=== PATIENT | male | born 1955 | race African-American/Black ===

== ENCOUNTER 2022-03-05 00:27 | Emergency (ER) | payer MEDICARE, OTHER ==
[~2022-03-05] VITALS: Ht 165.1 cm; Wt 66.4 kg
[~2022-03-05 00:27] MED LIST: AMLO10TA80 PO; CLOP75TA15 PO; COR6 PO; FAMO20TA8 PO; FLAS1EAC2 TP; HYDR-4135 PO; ISOS20TA57 MT; LIP40 PO; LISI20TA31 PO; METF-414 MT
[2022-03-05 03:26] LABS: CLARITY URINE CLOUDY (CLEAR); COLOR URINE ORANGE (YELLOW); KETONES URINE NEGATIVE (NEGATIVE); LEUKOCYTE ESTERASE URINE 1+ (NEGATIVE); NITRITE URINE NEGATIVE (NEGATIVE); OCCULT BLOOD URINE 3+ (NEGATIVE); PROTEIN URINE 4+ (NEGATIVE); SPECIFIC GRAVITY URINE 1.019 (1.005-1.030)
[2022-03-05] MEDS ORDERED: CLONIDINE 0.3MG TABLET PO ONE (03:45)
[2022-03-05] MEDS ORDERED: HYDROCODONE/ACETAMINOPHEN 10/325MG TABLET PO ONE (04:15)
[2022-03-05] MEDS ORDERED: CEPHALEXIN 250MG CAPSULE PO ONE (04:15)
[2022-03-05] MEDS ORDERED: CEPH500C2 MT ×2 (04:49→06:38)
[2022-03-05 04:56] VITALS: BP 153/78
== END 2022-03-05 04:59 | disposition home or self-care (01) ==
LOC: ER 00:27
DX: N39.0 Urinary tract infection, site not specified (principal); I10 Essential (primary) hypertension; E11.9 Type 2 diabetes mellitus without complications; Z86.73 Personal history of transient ischemic attack (TIA), and cerebral infarction without residual deficits; Z79.899 Other long term (current) drug therapy
CPT/HCPCS: 81003; 82962; 99284

== ENCOUNTER 2022-05-03 22:20 | Emergency (ER) | payer MEDICARE, OTHER ==
[~2022-05-03] VITALS: Ht 165.1 cm; Wt 63.8 kg
[~2022-05-03 22:20] MED LIST changes: +CEPH500C2 MT
[2022-05-03] MEDS ORDERED: AMLODIPINE 10MG TABLET PO ONE (22:45)
[2022-05-03] MEDS ORDERED: CARVEDILOL 6.25 MG TABLET PO ONE (22:45)
[2022-05-03] MEDS ORDERED: HYDRALAZINE HCL 50MG TABLET PO SCH (22:59)
[2022-05-03] MEDS ORDERED: ISOSORBIDE MONONITRATE 20MG TABLET PO SCH (22:59)
[2022-05-03 23:02] LABS: BASOPHILS % 0.6 % (0.0-2.0); EOSINOPHILS % 0.2 % (0.0-5.0); HEMATOCRIT. 38.3 % (36.0-48.0); HEMOGLOBIN. 12.5 g/dL (12.0-16.0); LYMPHOCYTES % 18.1 % (20.0-50.0); MEAN CORPUSCULAR HEMOGLOBIN 27.7 pg (28.0-32.0); MEAN CORPUSCULAR VOLUME 85.2 fL (81.0-99.0); MEAN PLATELET VOLUME 8.2 fl (7.4-10.4); MONOCYTES % 4.2 % (2.0-8.0); NEUTROPHILS % 76.9 % (40.0-76.0); PLATELET 493 x1000/uL (130-400); RED CELL DISTRIBUTION WIDTH 13.5 % (11.6-14.6)
[2022-05-03 23:09] LABS: CHLORIDE 102 mEq/L (98-107)
[2022-05-04] MEDS ORDERED: AMLO10TA80 MT (00:24)
[2022-05-04] MEDS ORDERED: CARV6.2548 MT (00:24)
[2022-05-04 01:44] VITALS: BP 132/69
[2022-05-04] MEDS ORDERED: HYDRALAZINE HCL 50MG TABLET PO SCH (06:00)
[2022-05-04] MEDS ORDERED: ISOSORBIDE MONONITRATE 20MG TABLET PO SCH (09:00)
== END 2022-05-04 01:46 | disposition home or self-care (01) ==
LOC: EDSEX 22:20 → ER 22:20
DX: I10 Essential (primary) hypertension (principal); Z76.0 Encounter for issue of repeat prescription; R11.10 Vomiting, unspecified; E11.9 Type 2 diabetes mellitus without complications; E78.00 Pure hypercholesterolemia, unspecified; Z86.73 Personal history of transient ischemic attack (TIA), and cerebral infarction without residual deficits
CPT/HCPCS: 36415; 80053; 83880; 85025; 93005; 99285

== ENCOUNTER 2022-06-10 08:59 | Emergency (ER) | payer MEDICARE, OTHER ==
[~2022-06-10] VITALS: Ht 165.1 cm; Wt 63.0 kg
[~2022-06-10 08:59] MED LIST changes: +AMLO10TA80 MT; +CARV6.2548 MT
[2022-06-10] MEDS ORDERED: ACET-3163 MT (09:21)
[2022-06-10] MEDS ORDERED: CHLO473M2 MT (09:21)
[2022-06-10] MEDS ORDERED: AMOX1TAB16 MT (09:21)
[2022-06-10] MEDS ORDERED: ACETAMINOPHEN 325MG TABLET PO ONE (09:30)
[2022-06-10] MEDS ORDERED: AMOXICILLIN/POTASSIUM CLAVULANATE 875/125MG TAB PO ONE (09:30)
[2022-06-10 09:50] VITALS: BP 169/89
== END 2022-06-10 09:51 | disposition home or self-care (01) ==
LOC: ER 09:23
DX: K04.7 Periapical abscess without sinus (principal); I10 Essential (primary) hypertension; K05.30 Chronic periodontitis, unspecified
CPT/HCPCS: 99283

== ENCOUNTER 2022-06-26 09:55 | Emergency (ER) | payer MEDICARE, OTHER ==
[~2022-06-26] VITALS: Ht 165.1 cm; Wt 66.0 kg
[~2022-06-26 09:55] MED LIST changes: +ACET-3163 MT; +AMOX1TAB16 MT; +CHLO473M2 MT
[2022-06-26] MEDS ORDERED: CLONIDINE 0.2MG TABLET PO ONE (10:30)
[2022-06-26] MEDS: CLONIDINE 0.2MG TABLET PO SCH ×2 (11:05→12:10)
[2022-06-26] MEDS ORDERED: CARV6.2548 MT (12:32)
[2022-06-26] MEDS ORDERED: AMLO10TA80 PO (12:32)
[2022-06-26 12:51] VITALS: BP 220/90
== END 2022-06-26 12:55 | disposition home or self-care (01) ==
LOC: ER 09:55
DX: I10 Essential (primary) hypertension (principal); E11.9 Type 2 diabetes mellitus without complications; Z79.899 Other long term (current) drug therapy; Z76.0 Encounter for issue of repeat prescription
CPT/HCPCS: 99283

== ENCOUNTER 2022-08-17 10:57 | Emergency (ER) | payer MEDICARE, OTHER ==
[~2022-08-17] VITALS: Ht 165.1 cm; Wt 75.0 kg
[2022-08-17 11:37] VITALS: BP 231/116
[2022-08-17] MEDS ORDERED: AMLODIPINE 10MG TABLET PO ONE (11:45)
[2022-08-17] MEDS ORDERED: CARVEDILOL 6.25 MG TABLET PO ONE (11:45)
[2022-08-17] MEDS ORDERED: CARV6.2548 MT (11:51)
[2022-08-17] MEDS ORDERED: HYDR-4134 MT (11:51)
[2022-08-17] MEDS ORDERED: METF-414 MT (11:53)
[2022-08-17] MEDS ORDERED: HYDRALAZINE HCL 25MG TABLET PO ONE (12:00)
== END 2022-08-17 12:06 | disposition home or self-care (01) ==
LOC: ER 10:57
DX: I10 Essential (primary) hypertension (principal); E11.9 Type 2 diabetes mellitus without complications; Z86.73 Personal history of transient ischemic attack (TIA), and cerebral infarction without residual deficits; Z76.0 Encounter for issue of repeat prescription
CPT/HCPCS: 99283

== ENCOUNTER 2022-10-25 14:05 | Emergency (ER) | payer MEDICARE, OTHER ==
[~2022-10-25] VITALS: Ht 160 cm; Wt 73.0 kg
[~2022-10-25 14:05] MED LIST changes: -ACET-3163 MT; -AMLO10TA80 MT; -AMLO10TA80 PO; -AMOX1TAB16 MT; -CARV6.2548 MT; -CEPH500C2 MT; -CHLO473M2 MT; -HYDR-4135 PO; +MINO10TA16 PO; +NIFE-32 PO
[2022-10-25 14:23] VITALS: BP 240/116
[2022-10-25] MEDS: CARVEDILOL 6.25 MG TABLET PO ONE (18:36)
[2022-10-25] MEDS: AMLODIPINE 5MG TABLET PO ONE ×2 (18:37→20:30)
[2022-10-25] MEDS: LISINOPRIL 20MG TABLET PO ONE (18:37)
[2022-10-25] MEDS: NIFEDIPINE XL 60MG TAB PO ONE (20:30)
[2022-10-25] MEDS ORDERED: CARV6.2548 MT (22:21)
[2022-10-25] MEDS ORDERED: NIFE-32 MT (22:21)
[2022-10-25] MEDS ORDERED: ISOS20TA57 MT (22:21)
[2022-10-25] MEDS ORDERED: CLOP75TA33 MT (22:21)
[2022-10-25] MEDS ORDERED: LISI20TA31 MT (22:21)
== END 2022-10-25 22:25 | disposition home or self-care (01) ==
LOC: ER 14:05
DX: I16.0 Hypertensive urgency (principal); I10 Essential (primary) hypertension; E11.9 Type 2 diabetes mellitus without complications; Z79.899 Other long term (current) drug therapy
CPT/HCPCS: 93005; 99284

== ENCOUNTER 2025-03-02 13:44 | Inpatient (IN) | payer MEDICARE, OTHER ==
[~2025-03-02] VITALS: Ht 167.6 cm; Wt 115.7 kg
[~2025-03-02 13:44] MED LIST changes: +ASPI-1406 PO; +CLOP-31 PO; -CLOP75TA15 PO; +COR3 PO; -COR6 PO; -ISOS20TA57 MT; -LISI20TA31 PO; -METF-414 MT; -MINO10TA16 PO; -NIFE-32 PO; +SENN-362 PO; +ZINC1CAP2 PO; +[UNRECOGNIZED DRUG - CODE] PO
[2025-03-02] MEDS: LABETALOL 5MG/ML 4ML INJ IV ONE (14:55)
[2025-03-02 15:09] LABS: HEMATOCRIT. 33.7 % (36.0-48.0); MEAN CORPUSCULAR HEMOGLOBIN 27.1 pg (28.0-32.0); MEAN CORPUSCULAR HGB CONC 32.6 g/dL (31.0-37.0); MEAN CORPUSCULAR VOLUME 82.9 fL (81.0-99.0); PLATELET 683 x1000/uL (130-400); RED BLOOD CELL COUNT 4.07 mill/uL (4.2-5.4); RED CELL DISTRIBUTION WIDTH 14.9 % (11.6-14.6); WHITE BLOOD COUNT 9.8 x1000/uL (4.5-11.0)
[2025-03-02 15:10] LABS: BASOPHILS % 0.6 % (0.0-2.0); EOSINOPHILS % 4.5 % (0.0-5.0); LYMPHOCYTES % 28.5 % (20.0-50.0); MEAN PLATELET VOLUME 7.3 fl (7.4-10.4); MONOCYTES % 6.7 % (2.0-8.0); NEUTROPHILS % 59.7 % (40.0-76.0)
[2025-03-02 15:20] LABS: CHLORIDE 101 mEq/L (98-107); POTASSIUM 3.7 mEq/L (3.5-5.1); SODIUM 140 mEq/L (136-145)
[2025-03-02 15:21] LABS: CARBON DIOXIDE 29 mEq/L (21-32); PROTHROMBIN TIME 10.9 sec (9.6-11.0)
[2025-03-02 15:22] LABS: CALCIUM 9.5 mg/dL (8.7-10.4)
[2025-03-02 15:26] LABS: CREATININE 0.8 mg/dL (0.6-1.0); GLUCOSE 185 mg/dL (70-105); TROPONIN I HIGH SENSITIVITY 25 ng/L (3.0-34)
[2025-03-02 15:27] LABS: UREA NITROGEN BLOOD 17 mg/dL (9-23)
[2025-03-02] MEDS: SODIUM CHLORIDE 0.9% (SEPSIS BOLUS) IV ONE (17:19)
[2025-03-02] MEDS: PIPERACILLIN/TAZO 3.375G/50ML 50 ML IV ONE (17:20)
[2025-03-02 18:17] LABS: ALANINE AMINOTRANSFERASE 17 IU/L (10-49); ALBUMIN 3.3 g/dL (3.2-4.8); ASPARTATE AMINOTRANSFERASE 22 IU/L (<34); BILIRUBIN DIRECT < 0.1 mg/dL (<=3.0); BILIRUBIN TOTAL 0.2 mg/dL (0.1-1.0); PROTEIN TOTAL 6.3 g/dL (6.0-8.3)
[2025-03-02] MEDS: VANCOMYCIN 1G PREMIX 200 ML IV ONE (18:53)
[2025-03-02] MEDS: HYDRALAZINE 20MG/ML VIAL IV PRN (19:16)
[2025-03-02] MEDS ORDERED: DEXTROSE 50% WATER 50ML SYRINGE IV PRN (20:45)
[2025-03-02] MEDS ORDERED: ACETAMINOPHEN 325MG TABLET PO PRN ×2 (20:45)
[2025-03-02] MEDS: BLOOD SUGAR DIAGNOSTIC STRIP TEST SCH (21:00)
[2025-03-02] MEDS: INSULIN LISPRO 100 UNITS/ML SUBCUT SCH (21:00)
[2025-03-02] MEDS ORDERED: IPRATROPIUM/ALBUTEROL 0.5-3(2.5)MG/3ML NEB HHN PRN (21:08)
[2025-03-02] MEDS: LABETALOL 5MG/ML 4ML INJ IV NR (21:16)
[2025-03-02 21:21] LABS: CLARITY URINE TURBID (CLEAR); COLOR URINE YELLOW (YELLOW); GLUCOSE URINE NEGATIVE (NEGATIVE); KETONES URINE NEGATIVE (NEGATIVE); LEUKOCYTE ESTERASE URINE 3+ (NEGATIVE); NITRITE URINE NEGATIVE (NEGATIVE); OCCULT BLOOD URINE 2+ (NEGATIVE); PH URINE 8.5 (4.5-8.0); PROTEIN URINE 2+ (NEGATIVE); SPECIFIC GRAVITY URINE 1.014 (1.005-1.030); UROBILINOGEN URINE 0.2 E.U./dL (0.2-1.0)
[2025-03-02 21:29] LABS: WBC URINE 25-50 /hpf (0-2)
[2025-03-02 21:30] LABS: BACTERIA URINE 4+; SQUAMOUS EPITHELIAL CELL URINE FEW /lpf (RARE/1+)
[2025-03-02 21:53] LABS: *AMPHETAMINES SCREEN URINE NEGATIVE (NEGATIVE); *BARBITURATES SCREEN URINE NEGATIVE (NEGATIVE); *BENZODIAZEPINES SCREEN URINE NEGATIVE (NEGATIVE); *COCAINE SCREEN URINE NEGATIVE (NEGATIVE); METHADONE URINE SCREEN NEGATIVE (NEGATIVE)
[2025-03-02 21:54] LABS: CANNABINOID URINE SCREEN NEGATIVE (NEGATIVE); ECSTASY MDMA SCREEN URINE NEGATIVE (NEGATIVE); OPIATES URINE SCREEN NEGATIVE (NEGATIVE); PHENCYCLIDINE URINE SCREEN NEGATIVE (NEGATIVE)
[2025-03-02] MEDS: AZITHROMYCIN 500MG/250ML 250 ML IV SCH (23:39)
[2025-03-02 23:54] LABS: CREATINE KINASE MB FRACTION 2.2 ng/mL (0.5-3.6)
[2025-03-03] VITALS (7 sets, daily range): BP systolic 147–191; BP diastolic 68–88; PULSE 83–97; RESP 17–23; TEMP 36.3–37.2; O2SAT 97–100
[2025-03-03] MEDS: NIFEDIPINE XL 60MG TAB PO NR (00:24)
[2025-03-03] MEDS: FUROSEMIDE 100MG/10ML VIAL IVP NR (00:25)
[2025-03-03] MEDS: VANCOMYCIN 750MG PREMIX 150 ML IV SCH ×2 (05:22→21:51)
[2025-03-03] MEDS: PIPERACILLIN/TAZO 3.375G/50ML 50 ML IV SCH (05:22)
[2025-03-03] MEDS: HYDRALAZINE 20MG/ML VIAL IV PRN (06:13)
[2025-03-03 07:29] LABS: BASOPHILS % 0.6 % (0.0-2.0); EOSINOPHILS % 2.6 % (0.0-5.0); HEMATOCRIT. 32.1 % (36.0-48.0); HEMOGLOBIN. 10.4 g/dL (12.0-16.0); LYMPHOCYTES % 19.2 % (20.0-50.0); MEAN CORPUSCULAR HEMOGLOBIN 26.7 pg (28.0-32.0); MEAN CORPUSCULAR HGB CONC 32.5 g/dL (31.0-37.0); MEAN CORPUSCULAR VOLUME 82.2 fL (81.0-99.0); MEAN PLATELET VOLUME 7.3 fl (7.4-10.4); MONOCYTES % 5.1 % (2.0-8.0); NEUTROPHILS % 72.5 % (40.0-76.0); PLATELET 703 x1000/uL (130-400); RED BLOOD CELL COUNT 3.91 mill/uL (4.2-5.4); RED CELL DISTRIBUTION WIDTH 14.8 % (11.6-14.6); WHITE BLOOD COUNT 9.8 x1000/uL (4.5-11.0)
[2025-03-03 07:36] LABS: CARBON DIOXIDE 26 mEq/L (21-32); CHLORIDE 103 mEq/L (98-107); CREATINE KINASE MB FRACTION 3.3 ng/mL (0.5-3.6); POTASSIUM 3.3 mEq/L (3.5-5.1); SODIUM 142 mEq/L (136-145)
[2025-03-03 07:39] LABS: T4 FREE 1.57 ng/dL (0.89-1.76); THYROID STIMULATING HORMONE 2.34 uIU/mL (0.55-4.78)
[2025-03-03 07:42] LABS: CREATININE 0.6 mg/dL (0.6-1.0); GLUCOSE 206 mg/dL (70-105); IRON 25 ug/dL (50-170); TRIGLYCERIDE 88 mg/dL (0-150)
[2025-03-03 07:43] LABS: LDL CHOLESTEROL 59 mg/dL (5-100); UREA NITROGEN BLOOD 11 mg/dL (9-23)
[2025-03-03 07:44] LABS: CHOLESTEROL 115 mg/dL (<200); FERRITIN 303 ng/mL (10-291); HDL CHOLESTEROL 35 mg/dL (>65); PHOSPHORUS 2.9 mg/dL (2.5-4.9)
[2025-03-03 07:45] LABS: FOLIC ACID (FOLATE) SERUM 14.53 ng/mL (>5.38); TOTAL IRON BINDING CAPACITY 295 ug/dl (250-425); VITAMIN B12 SERUM 1542 pg/mL (211-911)
[2025-03-03] MEDS: ASPIRIN 81MG EC TABLET PO SCH (08:38)
[2025-03-03] MEDS: CARVEDILOL 3.125 MG TABLET PO SCH (08:38)
[2025-03-03] MEDS: LOSARTAN 100 MG TABLET PO SCH (08:39)
[2025-03-03] MEDS: CLOPIDOGREL 75MG TABLET PO SCH (08:39)
[2025-03-03] MEDS: NIFEDIPINE XL 60MG TAB PO SCH (08:39)
[2025-03-03] MEDS: ENOXAPARIN 40MG/0.4ML SYR SUBCUT SCH (08:40)
[2025-03-03] MEDS: POTASSIUM CHLORIDE 20MEQ TABLET SR PO NR (08:40)
[2025-03-03] MEDS: FUROSEMIDE 40MG/4ML VIAL IV SCH (08:40)
[2025-03-03] MEDS: PANTOPRAZOLE SODIUM 40 MG/VIAL IV SCH (08:40)
[2025-03-03] MEDS: LABETALOL 5MG/ML 4ML INJ IV NR (09:30)
[2025-03-03] MEDS: MAGNESIUM 2 G PREMIX 50 ML IV NR (09:30)
[2025-03-03 11:50] LABS: TROPONIN I HIGH SENSITIVITY 191 ng/L (3.0-34)
[2025-03-03] MEDS: FERROUS SULFATE 325MG TABLET PO SCH (13:29)
[2025-03-03] MEDS: AZITHROMYCIN 500MG/250ML 250 ML IV SCH (21:51)
[2025-03-03] MEDS: ATORVASTATIN CALCIUM 40MG TABLET PO SCH (21:52)
[2025-03-03] MEDS: CARVEDILOL 12.5MG TABLET PO SCH (21:53)
[2025-03-04] VITALS: BP 118/88; PULSE 101; RESP 20; TEMP 36.3; O2SAT 98
[2025-03-04 04:00] VITALS: BP 122/64; PULSE 77; RESP 20; TEMP 36.3; O2SAT 98
[2025-03-04 06:39] LABS: BASOPHILS % 0.6 % (0.0-2.0); EOSINOPHILS % 2.7 % (0.0-5.0); HEMATOCRIT. 30.2 % (36.0-48.0); LYMPHOCYTES % 20.7 % (20.0-50.0); MEAN CORPUSCULAR HEMOGLOBIN 27.3 pg (28.0-32.0); MEAN CORPUSCULAR HGB CONC 33.1 g/dL (31.0-37.0); MEAN CORPUSCULAR VOLUME 82.4 fL (81.0-99.0); MEAN PLATELET VOLUME 7.3 fl (7.4-10.4); MONOCYTES % 5.1 % (2.0-8.0); NEUTROPHILS % 70.9 % (40.0-76.0); PLATELET 696 x1000/uL (130-400); RED BLOOD CELL COUNT 3.67 mill/uL (4.2-5.4); WHITE BLOOD COUNT 9.9 x1000/uL (4.5-11.0)
[2025-03-04 06:47] LABS: CHLORIDE 102 mEq/L (98-107); POTASSIUM 3.8 mEq/L (3.5-5.1); SODIUM 141 mEq/L (136-145)
[2025-03-04 06:48] LABS: CALCIUM 9.1 mg/dL (8.7-10.4); CARBON DIOXIDE 29 mEq/L (21-32)
[2025-03-04 06:53] LABS: CREATININE 0.6 mg/dL (0.6-1.0); GLUCOSE 177 mg/dL (70-105); UREA NITROGEN BLOOD 13 mg/dL (9-23)
[2025-03-04 08:00] VITALS: BP 131/92; PULSE 82; RESP 13; TEMP 36.8; O2SAT 99
[2025-03-04 09:03] LABS: TROPONIN I HIGH SENSITIVITY 198 ng/L (3.0-34)
[2025-03-04 12:00] VITALS: BP 161/87; PULSE 78; RESP 16; TEMP 36.4; O2SAT 98
[2025-03-04 16:00] VITALS: BP 139/66; PULSE 77; RESP 23; TEMP 36.6; O2SAT 99
[2025-03-04 20:00] VITALS: BP 162/67; PULSE 90; RESP 25; TEMP 36.9; O2SAT 98
[2025-03-04] MEDS: SULFAMETHOXAZOLE/TRIMETHOPRIM 800/160MG TABLET PO SCH (21:10)
[2025-03-04] MEDS: AZITHROMYCIN 250 MG TABLET PO SCH (21:11)
[2025-03-04] MEDS: AMOXICILLIN/POTASSIUM CLAVULANATE 500/125MG TAB PO SCH (21:18)
[2025-03-05] VITALS: BP 106/55; PULSE 77; RESP 20; TEMP 36.8; O2SAT 99
[2025-03-05 04:00] VITALS: BP 141/74; PULSE 82; RESP 23; TEMP 36.7; O2SAT 98
[2025-03-05 07:16] LABS: CHLORIDE 100 mEq/L (98-107); POTASSIUM 3.7 mEq/L (3.5-5.1); SODIUM 138 mEq/L (136-145)
[2025-03-05 07:17] LABS: BASOPHILS % 0.4 % (0.0-2.0); CALCIUM 9.3 mg/dL (8.7-10.4); CARBON DIOXIDE 30 mEq/L (21-32); EOSINOPHILS % 3.4 % (0.0-5.0); HEMATOCRIT. 31.4 % (36.0-48.0); HEMOGLOBIN. 10.4 g/dL (12.0-16.0); LYMPHOCYTES % 21.5 % (20.0-50.0); MEAN CORPUSCULAR HEMOGLOBIN 27.1 pg (28.0-32.0); MEAN CORPUSCULAR HGB CONC 33.1 g/dL (31.0-37.0); MEAN CORPUSCULAR VOLUME 81.7 fL (81.0-99.0); MEAN PLATELET VOLUME 7.4 fl (7.4-10.4); MONOCYTES % 5.6 % (2.0-8.0); NEUTROPHILS % 69.1 % (40.0-76.0); PLATELET 737 x1000/uL (130-400); RED BLOOD CELL COUNT 3.84 mill/uL (4.2-5.4); WHITE BLOOD COUNT 10.2 x1000/uL (4.5-11.0)
[2025-03-05 07:22] LABS: CREATININE 0.8 mg/dL (0.6-1.0); GLUCOSE 180 mg/dL (70-105); UREA NITROGEN BLOOD 15 mg/dL (9-23)
[2025-03-05 08:00] VITALS: BP 145/67; PULSE 84; RESP 17; TEMP 36.7; O2SAT 99
[2025-03-05 08:02] LABS: TROPONIN I HIGH SENSITIVITY 122 ng/L (3.0-34)
[2025-03-05] MEDS ORDERED: VANCOMYCIN 1G PREMIX 200 ML IV SCH (09:00)
[2025-03-05] MEDS: ZINC SULFATE 220 MG ( 50 ) CAPSULE PO SCH (09:40)
[2025-03-05 12:00] VITALS: BP 153/75; PULSE 80; RESP 20; TEMP 36.6; O2SAT 99
[2025-03-05] MEDS ORDERED: SULF1TAB44 PO (12:25)
[2025-03-05] MEDS ORDERED: AZIT250T12 PO (12:25)
[2025-03-05] MEDS ORDERED: FERR-63 PO (12:25)
[2025-03-05] MEDS ORDERED: LOSA100T33 PO (12:25)
[2025-03-05] MEDS ORDERED: NIFE-32 PO (12:25)
[2025-03-05] MEDS ORDERED: COR12 PO (12:25)
[2025-03-05] MEDS ORDERED: ZINC1CAP2 PO (12:25)
[2025-03-05 16:00] VITALS: BP 136/85; PULSE 78; RESP 14; TEMP 36.7; O2SAT 98
[2025-03-05 17:12] VITALS: BP 134/71; PULSE 78; TEMP 98; O2SAT 98
== END 2025-03-05 18:49 | disposition home or self-care (01) | DRG 871 ==
LOC: ER 13:44 → 3WST 17:54 → EDBEDREQ 17:56 → EDBEDREQTM 17:56
PROVIDERS: ADMIT Hospitalist; ATTEND Hospitalist
DX: A41.59 Other Gram-negative sepsis (principal); I21.A1 Myocardial infarction type 2; L89.153 Pressure ulcer of sacral region, stage 3; I50.33 Acute on chronic diastolic (congestive) heart failure; J18.9 Pneumonia, unspecified organism; J96.01 Acute respiratory failure with hypoxia; J96.02 Acute respiratory failure with hypercapnia; R53.2 Functional quadriplegia; I16.1 Hypertensive emergency; L97.418 Non-pressure chronic ulcer of right heel and midfoot with other specified severity; L97.428 Non-pressure chronic ulcer of left heel and midfoot with other specified severity; L97.318 Non-pressure chronic ulcer of right ankle with other specified severity; Z16.24 Resistance to multiple antibiotics; N39.0 Urinary tract infection, site not specified; I11.0 Hypertensive heart disease with heart failure; D64.9 Anemia, unspecified; I69.398 Other sequelae of cerebral infarction; E11.51 Type 2 diabetes mellitus with diabetic peripheral angiopathy without gangrene; E11.65 Type 2 diabetes mellitus with hyperglycemia; I25.10 Atherosclerotic heart disease of native coronary artery without angina pectoris; K21.9 Gastro-esophageal reflux disease without esophagitis; D75.839 Thrombocytosis, unspecified; L89.159 Pressure ulcer of sacral region, unspecified stage; E78.5 Hyperlipidemia, unspecified; B96.89 Other specified bacterial agents as the cause of diseases classified elsewhere; Z95.1 Presence of aortocoronary bypass graft; Z79.02 Long term (current) use of antithrombotics/antiplatelets; Z74.01 Bed confinement status; Z79.82 Long term (current) use of aspirin
CPT/HCPCS: 36415; 71045; 76604; 80048; 80061; 80076; 80202; 80305; 81003; 82550; 82553; 82607; 82728; 82746; 82962; 83036; 83540; 83550; 83605; 83735; 83880; 84100; 84145; 84439; 84443; 84484; 85025; 87077; 87186; 93005; 97162; 97166; 99291; J0360; J0456; J1650; J1815; J1940; J2470; J2543; J3370; J3475; J3490; J7030

== ENCOUNTER 2025-03-09 13:12 | Inpatient (IN) | payer MEDICARE, OTHER ==
[~2025-03-09] VITALS: Ht 160 cm; Wt 54.9 kg
[2025-03-09] MEDS: INSULIN GLARGINE 100 UNITS/ML SUBCUT SCH (10:00)
[~2025-03-09 13:12] MED LIST changes: +AZIT250T12 PO; +COR12 PO; -COR3 PO; +FERR-63 PO; +LOSA100T33 PO; +NIFE-32 PO; +SULF1TAB44 PO
[2025-03-09 13:15] VITALS: O2SAT 100
[2025-03-09] MEDS: NOREPINEPHRINE 8MG/250ML PMX 250 ML IV STA (13:24)
[2025-03-09] MEDS ORDERED: VANCOMYCIN 1000MG/250ML 250 ML IV STA (13:24)
[2025-03-09 14:00] LABS: BASOPHILS % 0.4 % (0.0-2.0); EOSINOPHILS % 2.8 % (0.0-5.0); HEMATOCRIT. 27.6 % (36.0-48.0); HEMOGLOBIN. 8.7 g/dL (12.0-16.0); LYMPHOCYTES % 32.7 % (20.0-50.0); MEAN CORPUSCULAR HEMOGLOBIN 26.9 pg (28.0-32.0); MEAN CORPUSCULAR HGB CONC 31.6 g/dL (31.0-37.0); MEAN CORPUSCULAR VOLUME 85.2 fL (81.0-99.0); MEAN PLATELET VOLUME 7.7 fl (7.4-10.4); NEUTROPHILS % 59.1 % (40.0-76.0); PLATELET 695 x1000/uL (130-400); RED BLOOD CELL COUNT 3.24 mill/uL (4.2-5.4); RED CELL DISTRIBUTION WIDTH 15.5 % (11.6-14.6); WHITE BLOOD COUNT 13.3 x1000/uL (4.5-11.0)
[2025-03-09 14:10] LABS: CHLORIDE 105 mEq/L (98-107); POTASSIUM 5.4 mEq/L (3.5-5.1); SODIUM 139 mEq/L (136-145)
[2025-03-09 14:11] LABS: CALCIUM 9.2 mg/dL (8.7-10.4); CARBON DIOXIDE 23 mEq/L (21-32)
[2025-03-09] MEDS: PIPERACILLIN/TAZO 3.375G/50ML 50 ML IV ONE (14:12)
[2025-03-09] MEDS: SODIUM CHLORIDE 0.9% (SEPSIS BOLUS) IV ONE (14:12)
[2025-03-09 14:16] LABS: CREATININE 1.3 mg/dL (0.6-1.0); GLUCOSE 240 mg/dL (70-105); UREA NITROGEN BLOOD 21 mg/dL (9-23)
[2025-03-09 14:18] LABS: ALANINE AMINOTRANSFERASE 16 IU/L (10-49); ALBUMIN 3.6 g/dL (3.2-4.8); ASPARTATE AMINOTRANSFERASE 26 IU/L (<34); BILIRUBIN DIRECT < 0.1 mg/dL (<=3.0)
[2025-03-09 14:19] LABS: BILIRUBIN TOTAL 0.2 mg/dL (0.1-1.0); PROTEIN TOTAL 6.6 g/dL (6.0-8.3)
[2025-03-09 14:33] LABS: LACTIC ACID 3.4 mmol/L (0.4-2.0)
[2025-03-09 14:45] LABS: TROPONIN I HIGH SENSITIVITY 26 ng/L (3.0-34)
[2025-03-09] MEDS ORDERED: ALBUTEROL (0.083%) 2.5MG/3ML NEB HHN ONE (14:45)
[2025-03-09] MEDS: VANCOMYCIN 1G PREMIX 200 ML IV SCH (14:46)
[2025-03-09] MEDS: SODIUM ZIRCONIUM CYCLOSILICATE 10GM/PACKET PO ONE (15:07)
[2025-03-09] MEDS: INSULIN REGULAR (HUMULIN R) 1000UNITS/10ML VIAL IV ONE (15:08)
[2025-03-09] MEDS: DEXTROSE 50% WATER 50ML SYRINGE IV SCH (15:16)
[2025-03-09] MEDS: DEXTROSE 50% WATER 50ML SYRINGE IV ONE (15:44)
[2025-03-09] MEDS ORDERED: DOCUSATE SODIUM 100MG CAPSULE PO PRN (18:30)
[2025-03-09] MEDS ORDERED: MORPHINE SULFATE 2 MG/ML INJ (NOT FOR IM USE) IV PRN (18:30)
[2025-03-09] MEDS ORDERED: ACETAMINOPHEN 325MG TABLET PO PRN ×2 (18:30)
[2025-03-09] MEDS ORDERED: IPRATROPIUM/ALBUTEROL 0.5-3(2.5)MG/3ML NEB HHN PRN (18:30)
[2025-03-09] MEDS ORDERED: ONDANSETRON HCL 4MG/2ML INJ IV PRN (18:30)
[2025-03-09] MEDS ORDERED: GUAIFENESIN 200MG/10ML SUGAR FREE UDC PO PRN (18:30)
[2025-03-09] MEDS ORDERED: MAGNESIUM/ALUMINUM HYDROXIDE/SIMETHICONE 30ML UDC PO PRN (18:30)
[2025-03-09] MEDS ORDERED: PIPERACILLIN/TAZOBACTAM 3.375 G in DEXTROSE 5% WATER 50 ML IV SCH (18:30)
[2025-03-09] MEDS ORDERED: HYDROCODONE/ACETAMINOPHEN 5/325MG TABLET PO PRN (18:30)
[2025-03-09] MEDS ORDERED: NALOXONE HCL 0.4MG/ML VIAL IV PRN (18:45)
[2025-03-09 19:29] LABS: FERRITIN 392 ng/mL (10-291); FOLIC ACID (FOLATE) SERUM > 20.00 ng/mL (>5.38); VITAMIN B12 SERUM 1225 pg/mL (211-911)
[2025-03-09 21:43] LABS: CARBON DIOXIDE 23 mEq/L (21-32); CHLORIDE 108 mEq/L (98-107); POTASSIUM 4.7 mEq/L (3.5-5.1); SODIUM 142 mEq/L (136-145)
[2025-03-09 21:44] LABS: CALCIUM 8.3 mg/dL (8.7-10.4)
[2025-03-09 21:48] LABS: CREATININE 1.1 mg/dL (0.6-1.0); GLUCOSE 189 mg/dL (70-105); IRON 35 ug/dL (50-170)
[2025-03-09 21:49] LABS: UREA NITROGEN BLOOD 21 mg/dL (9-23)
[2025-03-09 21:50] LABS: ALANINE AMINOTRANSFERASE 12 IU/L (10-49); ALBUMIN 3.1 g/dL (3.2-4.8); ASPARTATE AMINOTRANSFERASE 13 IU/L (<34)
[2025-03-09 21:51] LABS: BILIRUBIN TOTAL 0.2 mg/dL (0.1-1.0); FIBRINOGEN 466 mg/dL (200-400); INR 1.1; PARTIAL THROMBOPLASTIN TIME < 21.0 sec (23.4-31.0); PROTEIN TOTAL 5.7 g/dL (6.0-8.3); PROTHROMBIN TIME 11.4 sec (9.6-11.0); TOTAL IRON BINDING CAPACITY 230 ug/dl (250-425)
[2025-03-09 22:00] VITALS: BP 115/76; PULSE 70; RESP 16; O2SAT 98
[2025-03-09] MEDS: SODIUM CHLORIDE 0.9% 1,000 ML IV SCH (22:32)
[2025-03-09] MEDS ORDERED: IOHEXOL-350 100 ML BOTTLE ONE (22:32)
[2025-03-09] MEDS: PIPERACILLIN/TAZO 3.375G/50ML IV SCH (22:32)
[2025-03-09] MEDS: ATORVASTATIN CALCIUM 40MG TABLET PO SCH (22:32)
[2025-03-10] VITALS (14 sets, daily range): BP systolic 115–160; BP diastolic 35–85; PULSE 62–82; RESP 14–22; TEMP 34.4–36.6; O2SAT 96–100
[2025-03-10 03:36] LABS: CLARITY URINE CLOUDY (CLEAR); COLOR URINE YELLOW (YELLOW); GLUCOSE URINE 1+ (NEGATIVE); KETONES URINE NEGATIVE (NEGATIVE); LEUKOCYTE ESTERASE URINE 2+ (NEGATIVE); NITRITE URINE NEGATIVE (NEGATIVE); OCCULT BLOOD URINE NEGATIVE (NEGATIVE); PH URINE 5.5 (4.5-8.0); PROTEIN URINE NEGATIVE (NEGATIVE); SPECIFIC GRAVITY URINE 1.065 (1.005-1.030); UROBILINOGEN URINE 0.2 E.U./dL (0.2-1.0)
[2025-03-10 04:29] LABS: BACTERIA URINE NONE SEEN; SQUAMOUS EPITHELIAL CELL URINE NONE SEEN /lpf (RARE/1+); YEAST URINE 2+
[2025-03-10 04:31] LABS: RBC URINE 0-2 /hpf (0-2)
[2025-03-10 04:37] LABS: *AMPHETAMINES SCREEN URINE NEGATIVE (NEGATIVE); *BARBITURATES SCREEN URINE NEGATIVE (NEGATIVE); *BENZODIAZEPINES SCREEN URINE NEGATIVE (NEGATIVE); *COCAINE SCREEN URINE NEGATIVE (NEGATIVE); METHADONE URINE SCREEN NEGATIVE (NEGATIVE)
[2025-03-10 04:38] LABS: CANNABINOID URINE SCREEN NEGATIVE (NEGATIVE); ECSTASY MDMA SCREEN URINE NEGATIVE (NEGATIVE); OPIATES URINE SCREEN NEGATIVE (NEGATIVE); PHENCYCLIDINE URINE SCREEN NEGATIVE (NEGATIVE)
[2025-03-10 06:46] LABS: BASOPHILS % 0.5 % (0.0-2.0); DIFFERENTIAL COMMENT 0; EOSINOPHILS % 5.3 % (0.0-5.0); LYMPHOCYTES % 25.4 % (20.0-50.0); MEAN CORPUSCULAR HGB CONC 31.9 g/dL (31.0-37.0); MEAN CORPUSCULAR VOLUME 84.6 fL (81.0-99.0); MEAN PLATELET VOLUME 7.6 fl (7.4-10.4); MONOCYTES % 6.1 % (2.0-8.0); NEUTROPHILS % 62.7 % (40.0-76.0); PLATELET 476 x1000/uL (130-400); RED BLOOD CELL COUNT 2.32 mill/uL (4.2-5.4); RED CELL DISTRIBUTION WIDTH 15.4 % (11.6-14.6); WHITE BLOOD COUNT 11.9 x1000/uL (4.5-11.0)
[2025-03-10 06:52] LABS: CREATINE KINASE MB FRACTION 1.8 ng/mL (0.5-3.6)
[2025-03-10 06:53] LABS: CALCIUM 8.3 mg/dL (8.7-10.4); CARBON DIOXIDE 23 mEq/L (21-32); CHLORIDE 107 mEq/L (98-107); POTASSIUM 3.7 mEq/L (3.5-5.1); SODIUM 139 mEq/L (136-145)
[2025-03-10 06:56] LABS: T4 FREE 1.13 ng/dL (0.89-1.76)
[2025-03-10 06:57] LABS: THYROID STIMULATING HORMONE 2.14 uIU/mL (0.55-4.78)
[2025-03-10 06:59] LABS: CREATININE 0.9 mg/dL (0.6-1.0); GLUCOSE 106 mg/dL (70-105); TRIGLYCERIDE 138 mg/dL (0-150); UREA NITROGEN BLOOD 21 mg/dL (9-23)
[2025-03-10 07:00] LABS: CREATINE KINASE 40 IU/L (34-145); HEMATOCRIT. 19.6 % (36.0-48.0); HEMOGLOBIN. 6.3 g/dL (12.0-16.0); LDL CHOLESTEROL 39 mg/dL (5-100)
[2025-03-10 07:01] LABS: CHOLESTEROL 87 mg/dL (<200); HDL CHOLESTEROL 22 mg/dL (>65)
[2025-03-10] MEDS: INSULIN LISPRO 100 UNITS/ML SUBCUT SCH ×2 (07:30→08:00)
[2025-03-10] MEDS: BLOOD SUGAR DIAGNOSTIC STRIP TEST SCH (07:30)
[2025-03-10] MEDS ORDERED: LACTULOSE 20G/30ML UDC PO PRN (07:45)
[2025-03-10] MEDS ORDERED: CARVEDILOL 12.5MG TABLET PO SCH (08:00)
[2025-03-10 08:35] LABS: TROPONIN I HIGH SENSITIVITY 42 ng/L (3.0-34)
[2025-03-10 08:48] LABS: INR 1.1; PROTHROMBIN TIME 11.4 sec (9.6-11.0)
[2025-03-10] MEDS ORDERED: CLOPIDOGREL 75MG TABLET PO SCH (09:00)
[2025-03-10] MEDS ORDERED: ASPIRIN 81MG EC TABLET PO SCH (09:00)
[2025-03-10] MEDS: FERROUS SULFATE 325MG TABLET PO SCH (09:10)
[2025-03-10] MEDS: METHYLPHENIDATE HCL 5MG TABLET PO SCH (09:10)
[2025-03-10] MEDS: FAMOTIDINE 20MG TABLET PO SCH (09:11)
[2025-03-10] MEDS: MULTIVITAMINS,THER W-MINERALS TABLET PO SCH (09:12)
[2025-03-10] MEDS: ASCORBIC ACID 250 MG TABLET PO SCH (09:13)
[2025-03-10 09:19] LABS: PREALBUMIN 15.6 mg/dl (10.0-40.0)
[2025-03-10] MEDS: IRON SUCROSE COMPLEX 100 MG/5 ML ML IV SCH (09:20)
[2025-03-10] MEDS: ZINC SULFATE 220 MG ( 50 ) CAPSULE PO SCH (09:20)
[2025-03-10] MEDS: FLUCONAZOLE 100MG TABLET PO SCH (09:21)
[2025-03-10] MEDS: PANTOPRAZOLE SODIUM 40 MG/VIAL IV SCH (13:09)
[2025-03-10] MEDS: VANCOMYCIN 1GM PMX (XELLIA) 200 ML IV SCH (15:27)
[2025-03-10 16:16] LABS: HEMATOCRIT 24.6 % (36.0-48.0)
[2025-03-10 22:16] LABS: HEMATOCRIT 24.5 % (36.0-48.0); HEMOGLOBIN 7.5 g/dL (12.0-16.0)
[2025-03-11] VITALS (7 sets, daily range): BP systolic 145–206; BP diastolic 55–87; PULSE 72–84; RESP 16–23; TEMP 36.3–36.9; O2SAT 65–100
[2025-03-11] MEDS: CLONIDINE 0.1MG TABLET PO PRN (06:41)
[2025-03-11 06:59] LABS: BASOPHILS % 0.3 % (0.0-2.0); EOSINOPHILS % 6.6 % (0.0-5.0); HEMATOCRIT. 24.9 % (36.0-48.0); HEMOGLOBIN. 8.1 g/dL (12.0-16.0); LYMPHOCYTES % 19.7 % (20.0-50.0); MEAN CORPUSCULAR HGB CONC 32.7 g/dL (31.0-37.0); MEAN CORPUSCULAR VOLUME 82.6 fL (81.0-99.0); MEAN PLATELET VOLUME 7.8 fl (7.4-10.4); MONOCYTES % 5.5 % (2.0-8.0); NEUTROPHILS % 67.9 % (40.0-76.0); PLATELET 437 x1000/uL (130-400); RED BLOOD CELL COUNT 3.01 mill/uL (4.2-5.4); RED CELL DISTRIBUTION WIDTH 16.3 % (11.6-14.6); WHITE BLOOD COUNT 11.3 x1000/uL (4.5-11.0)
[2025-03-11 07:07] LABS: CARBON DIOXIDE 24 mEq/L (21-32); CHLORIDE 108 mEq/L (98-107); POTASSIUM 3.9 mEq/L (3.5-5.1); SODIUM 143 mEq/L (136-145)
[2025-03-11 07:08] LABS: CALCIUM 8.7 mg/dL (8.7-10.4)
[2025-03-11 07:11] LABS: CREATININE 0.9 mg/dL (0.6-1.0)
[2025-03-11 07:13] LABS: GLUCOSE 103 mg/dL (70-105); UREA NITROGEN BLOOD 25 mg/dL (9-23)
[2025-03-11 07:15] LABS: PHOSPHORUS 3.1 mg/dL (2.5-4.9)
[2025-03-11] MEDS: NIFEDIPINE XL 60MG TAB PO SCH (11:28)
[2025-03-11 12:52] LABS: HEMATOCRIT 25.9 % (36.0-48.0); HEMOGLOBIN 8.2 g/dL (12.0-16.0)
[2025-03-11] MEDS: LOSARTAN 100 MG TABLET PO SCH (16:49)
[2025-03-11] MEDS: DEXTROSE 50% WATER 50ML SYRINGE IV PRN (20:28)
[2025-03-11] MEDS: HYDROCORTISONE ACETATE 25MG SUPP PR SCH (21:00)
[2025-03-11] MEDS: CARVEDILOL 3.125 MG TABLET PO SCH (21:10)
[2025-03-12] VITALS (7 sets, daily range): BP systolic 122–167; BP diastolic 64–84; PULSE 83–87; RESP 14–20; TEMP 35.3–36.6; O2SAT 95–100
[2025-03-12 06:34] LABS: BASOPHILS % 0.3 % (0.0-2.0); EOSINOPHILS % 3.8 % (0.0-5.0); HEMATOCRIT. 27.4 % (36.0-48.0); HEMOGLOBIN. 8.7 g/dL (12.0-16.0); LYMPHOCYTES % 20.1 % (20.0-50.0); MEAN CORPUSCULAR HEMOGLOBIN 26.9 pg (28.0-32.0); MEAN CORPUSCULAR HGB CONC 31.8 g/dL (31.0-37.0); MEAN CORPUSCULAR VOLUME 84.5 fL (81.0-99.0); MEAN PLATELET VOLUME 7.6 fl (7.4-10.4); MONOCYTES % 4.8 % (2.0-8.0); PLATELET 455 x1000/uL (130-400); RED BLOOD CELL COUNT 3.24 mill/uL (4.2-5.4); RED CELL DISTRIBUTION WIDTH 17.1 % (11.6-14.6); WHITE BLOOD COUNT 13.1 x1000/uL (4.5-11.0)
[2025-03-12 06:42] LABS: CALCIUM 9.3 mg/dL (8.7-10.4); CHLORIDE 112 mEq/L (98-107); POTASSIUM 4.1 mEq/L (3.5-5.1); SODIUM 144 mEq/L (136-145)
[2025-03-12 06:43] LABS: CARBON DIOXIDE 22 mEq/L (21-32)
[2025-03-12 06:48] LABS: CREATININE 0.9 mg/dL (0.6-1.0); GLUCOSE 92 mg/dL (70-105); UREA NITROGEN BLOOD 17 mg/dL (9-23)
[2025-03-12] MEDS: BISACODYL 10MG SUPP PR SCH (12:00)
[2025-03-12] MEDS: HYDRALAZINE 20MG/ML VIAL IV NR (20:36)
[2025-03-12] MEDS ORDERED: VANCOMYCIN 750MG PMX (XELLIA) 150 ML IV SCH (23:00)
== END 2025-03-12 22:57 | DRG 871 ==
LOC: ER 13:42 → EDBEDREQTM 16:40 → EDBEDREQSVC 16:40 → EDBEDREQ 16:40 → ENRESERV 18:33 → 5EST 19:01 → 6WST 03-12 06:25
PROVIDERS: ADMIT Hospitalist; ATTEND Hospitalist
PROC: 30233N1 Transfusion of Nonautologous Red Blood Cells into Peripheral Vein, Percutaneous Approach (ICD-10-PCS; principal; 2025-03-10)
DX: A41.9 Sepsis, unspecified organism (principal); G93.41 Metabolic encephalopathy; I21.A1 Myocardial infarction type 2; L89.153 Pressure ulcer of sacral region, stage 3; R57.1 Hypovolemic shock; N17.0 Acute kidney failure with tubular necrosis; N39.0 Urinary tract infection, site not specified; I50.32 Chronic diastolic (congestive) heart failure; D62 Acute posthemorrhagic anemia; I69.351 Hemiplegia and hemiparesis following cerebral infarction affecting right dominant side; K56.0 Paralytic ileus; K92.1 Melena; L97.428 Non-pressure chronic ulcer of left heel and midfoot with other specified severity; L97.418 Non-pressure chronic ulcer of right heel and midfoot with other specified severity; I25.10 Atherosclerotic heart disease of native coronary artery without angina pectoris; D64.9 Anemia, unspecified; I11.0 Hypertensive heart disease with heart failure; E87.5 Hyperkalemia; K80.20 Calculus of gallbladder without cholecystitis without obstruction; K76.0 Fatty (change of) liver, not elsewhere classified; D75.838 Other thrombocytosis; D63.8 Anemia in other chronic diseases classified elsewhere; E11.51 Type 2 diabetes mellitus with diabetic peripheral angiopathy without gangrene; E61.1 Iron deficiency; R65.20 Severe sepsis without septic shock; E78.00 Pure hypercholesterolemia, unspecified; Z95.1 Presence of aortocoronary bypass graft; Z79.899 Other long term (current) drug therapy; Z74.01 Bed confinement status
CPT/HCPCS: 36415; 71045; 71275; 74018; 74174; 80048; 80053; 80061; 80076; 80202; 80305; 81003; 82270; 82550; 82553; 82607; 82728; 82746; 82962; 83036; 83540; 83550; 83605; 83615; 83735; 83880; 84100; 84134; 84145; 84439; 84443; 84484; 85014; 85018; 85025; 85044; 85384; 86850; 86900; 86920; 87106; 93005; 96365; 96368; 96375; 97110; 97112; 97166; 99291; J0360; J1815; J2470; J2543; J3370; J3490; J7030; P9016; Q9967